=== PATIENT | female | born 2005 | race Caucasian/White ===

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

== ENCOUNTER 2023-11-28 11:14 | Emergency (ER) | payer MEDICAID, SELFPAY ==
[2023-11-28 11:14] VITALS: BP 141/73; BP 147/81; PULSE 115; PULSE 119; RESP 20; TEMP 37.4; O2SAT 98; BMI 42.6
--- NOTE | 2023-11-28 11:49 | EDS_ITS ---
HPI History of Present Illness Chief Complaint: Fever Informant: patient Onset/Context/Timing Onset: Days Context: Gradual Onset Timing: Intermittent Current Severity: Mild Maximum Severity: Mild Narrative Narrative: 18-year-old female no signet past medical history all other than polycystic ovarian syndrome. States she has had fevers as high as 103 over the last 5 days. Has had nausea and vomiting x 1 yesterday. No dysuria. No cough. No abdominal pain. Prior similar symptoms: Yes Recent Illness/Hospitalization: No PFSH PFSH no medical history Home Medications No Known/Unobtainable [No Known Home Medications] 10/10/16 [History Last Taken Unknown] Allergy/AdvReac Type Severity Reaction Status Date / Time No Known Allergies Allergy Verified 11/28/23 11:15 Surgical History History of tonsillectomy Social History Smoking Status: Never smoker ROS ROS ED ROS Narrative Intermittent fever last several days. Nausea and vomiting x 1 resolved. No diarrhea. No dysuria. No cough or shortness of breath. No abdominal pain. Review of Systems ROS Unobtainable: Denies due to encephalopathy Constitutional Constitutional ED: Reports fever(s); Denies chills Eyes Eyes: Denies blurry vision ENT ENT ED: Denies ear pain, rhinorrhea or sore throat Cardiovascular Cardiovascular: Denies chest pain or palpitations Respiratory/Chest Respiratory/Chest: Denies cough or dyspnea Gastrointestinal Gastrointestinal: Reports nausea and vomiting; Denies abdominal pain, constipation, diarrhea or melena Genitourinary Genitourinary ED: Denies dysuria or hematuria Musculoskeletal Musculoskeletal: Denies arthralgias or back pain Integumentary Denies abscess or Abrasions Neurologic Neurologic: Denies paresthesias or weakness Psychiatric Psychiatric: Denies anxiety or depression Endocrine Endocrinology: Denies cold intolerance Hematologic/Lymphatic Hematologic/Lymphatic: Reports none Allergic/Immunologic Allergic/Immunologic ED: Denies mouth swelling, tongue swelling or urticaria EXAM Physical Exam Narrative Exam Narrative: Well-appearing 18-year-old female. Vital signs stable afebrile. Does not look septic toxic no acute distress. Pulse ox 90% room air no signs hypoxia. Temperature is nine 9.3. Patient does not look septic or toxic. H EENT exam unremarkable. TMs normal. Posterior pharynx normal. Moist pink. No trouble swallowing or breathing. Sinuses are nontender. No nasal discharge. Neck nontender no lymphadenopathy no meningismus. Able to touch chin to chest. Lungs clear to auscultation bilaterally. Heart tachycardic no murmur. Rate about 110. Chest wall and ribs nontender. Abdomen soft nontender. No peritoneal signs. Moving all 4 extremities. Nontender no edema. No rashes. Back nontender. No CVA tenderness. Neurologically patient is awake alert no focal motor deficits. NIH 0. Const Vital Signs: 11/28/23 11:14 11/28/23 11:14 Temperature 99.3 F H Temperature Source Temporal Pulse Rate 115 H 119 H Respiratory Rate 20 H 20 H Blood Pressure 147/81 H 141/73 H Blood Pressure Mean 103 95 Pulse Ox 98 98 Oxygen Delivery Method Room Air Room Air Positive well nourished and well developed; Negative for cachectic, contractures or unkempt General Appearance ED: well developed and NAD; Negative for unkempt, cachectic, contractures, cyanotic, diaphoretic or pallor Nutritional Appearance: Negative for cachectic HEENT Reports moist mucous membranes; Denies dry mucous membranes Negative for trauma or tenderness Mouth ED: No dry mucous membranes Mouth: No dry mucous membranes Eyes PERRL and EOMs intact bilaterally General Eye ED: Negative for pale conjunctiva, scleral icterus or other Neck no lymphadenopathy, supple and no JVD General: Negative for tenderness Lymph Lymphatic: Negative for other Chest Wall inspection of chest normal and palpation of chest normal Resp normal respiratory effort and clear to auscultation bilaterally Effort and Inspection: Negative for retractions Auscultation: Negative for rales, rhonchi or wheezes Cardio regular rhythm, S1 normal heart sound, S2 normal heart sound and no murmurs; Negative for regular rate Rate: tachycardic GI normal to inspection, nondistended, normoactive bowel sounds, non-tender, non- distended and no masses; Negative for hepatosplenomegaly Inspection: Negative for abdominal distention Auscultation: normoactive bowel sounds Palpation: soft; Negative for tender, guarding or rebound tenderness present Back/Spine no CVA tenderness General Back: Negative for CVA tenderness Cervical Spine: Negative for cervical spine tenderness Thoracic Spine / Upper Back: Negative for thoracic spinal tenderness or paraspinal muscle tenderness Lumbar Spine / Lower Back: Negative for lumbar spinal tenderness Extremity normal to inspection General Extremety ED: Negative for edema, tenderness or other findings General Extremity: Negative for edema or other findings Neuro oriented x3 and CN's II-XII intact bilaterally Sensorium / Orientation: alert; Negative for orientation impaired, lethargic or stuporous Motor Exam: strength 5/5 throughout; Negative for general weakness or strength abnormal Psych Appearance: Negative for unkempt Attitude: No agitated Mood & Affect: Negative for depressed, anxious or tearful Skin no rashes or lesions noted, no wounds and skin turgor normal General Skin Exam: elasticity normal; Negative for jaundice or pallor Lesions: No lesion noted Rashes: No rashes noted Trauma: Negative for abrasion Wounds: Negative for wounds noted MDM MDM MDM Narrative Medical decision making narrative: 18-year-old female exam normal. Most likely viral syndrome. She is having no urinary symptoms. I offered her to . She told me she had a urinalysis done a couple days ago at her doctor's office it was negative. She does not want another obtained today. She does not need any lab work or imaging. Fluids and rest. Tylenol Motrin. Follow-up with your doctor if not improving. Return if worse. Discharge Plan Triage Chief Complaint: Fever ED Provider: David Juarez Dx/Rx/DC Orders Clinical Impression: Viral syndrome Instructions: ED Viral Syndrome (Adult) Prescriptions: No Action No Known Home Medications Primary Care Provider: Jack Ellsworth Referrals: Jack Ellsworth MD [Primary Care Provider] - 3-5 Days if not improving Activity Restrictions/Additional Instructions: Plenty of fluids and rest. Alternate Tylenol and Motrin for any fevers. Follow-up with your doctor if not improving or return if worse. Off work today. Disposition Disposition: Home, Self Care
== END 2023-11-28 12:22 | disposition home or self-care (01) ==
LOC: ED 11:59
PROVIDERS: Emergency Provider Emergency Medicine; PCP Pediatrics; Visit Provider Emergency Medicine
DX: B34.9 Viral infection, unspecified (principal); R11.2 Nausea with vomiting, unspecified
CPT/HCPCS: 99282